=== PATIENT | female | born 1985 | race African-American/Black ===

== ENCOUNTER 2018-03-30 18:14 | Emergency (ER) | payer MEDICARE, MEDICAID ==
[~2018-03-30] VITALS: Ht 167.6 cm; Wt 70.0 kg
[~2018-03-30 18:14] MED LIST: AMLO10TA4 PO; ASPI-1158 PO; BENA20TA10 PO; CALC668T PO; DIPH25CA83 PO; FOLI1TAB33 PO; INSLAN SQ; INSLIS SQ; ISOS60TA4 PO; METO25TA6 PO; [UNRECOGNIZED DRUG - CODE] PO
[2018-03-30 19:12] LABS: BASOPHILS % 0.5 % (0.0-2.0); EOSINOPHILS % 1.2 % (0.0-5.0); HEMATOCRIT. 39.1 % (36.0-48.0); LYMPHOCYTES % 23.3 % (20.0-50.0); MEAN CORPUSCULAR HEMOGLOBIN 31.8 pg (28.0-32.0); MEAN CORPUSCULAR VOLUME 95.6 fL (81.0-99.0); MEAN PLATELET VOLUME 8.4 fl (7.4-10.4); MONOCYTES % 6.6 % (2.0-8.0); NEUTROPHILS % 68.4 % (40.0-76.0); PLATELET 223 x1000/uL (130-400); RED BLOOD CELL COUNT 4.09 mill/uL (4.2-5.4); RED CELL DISTRIBUTION WIDTH 15.7 % (11.6-14.6)
[2018-03-30 19:15] LABS: CHLORIDE 95 mEq/L (98-107)
[2018-03-30 19:18] LABS: INR 1.1; PARTIAL THROMBOPLASTIN TIME 23.9 sec (23.4-31.0); PROTHROMBIN TIME 10.7 sec (9.1-11.1)
[2018-03-30 19:19] LABS: HCG SCREEN NEGATIVE
[2018-03-30 19:45] VITALS: BP 112/71
== END 2018-03-30 20:45 | disposition home or self-care (01) ==
LOC: ER 18:14
DX: R55 Syncope and collapse (principal); I12.0 Hypertensive chronic kidney disease with stage 5 chronic kidney disease or end stage renal disease; E11.22 Type 2 diabetes mellitus with diabetic chronic kidney disease; E11.649 Type 2 diabetes mellitus with hypoglycemia without coma; N18.6 End stage renal disease; Z79.4 Long term (current) use of insulin; Z99.2 Dependence on renal dialysis
CPT/HCPCS: 36415; 80053; 82962; 84703; 85025; 85610; 85730; 93005; 99285